=== PATIENT | male | born 1970 | race Hispanic/Latino ===

== ENCOUNTER 2017-11-27 18:11 | Inpatient (IN) | payer OTHER ==
[2017-11-27 18:11] VITALS: BMI 47.2
--- NOTE | 2017-11-27 20:58 | C.PDOC ---
History Of Present Illness 47 year old male presents to the ED for evaluation of scrotal swelling. Patient underwent admission on 05/2016 for CHF and uncontrolled Diabetes. 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 His cardiac echo showed mild systolic dysfunction and positive diastolic dysfunction. Patient reports good consistency with Lasix daily but states he overdrinks his diuretics, drinking 7-8 liters of [place]/day. Patient is consistent with his Metformin 1000mg BID. He states his finger stick is usually under 150 in the morning, and under 200 around dinnertime. Patient has sleep apnea, for which he wears a sleep mask at night. He denies fever, chills, or scrotal pain. Time Seen by Provider: 11/27/17 20:36 Chief Complaint (Nursing): Male Genitourinary History Per: Patient History/Exam Limitations: no limitations Onset/Duration Of Symptoms: Days Current Symptoms Are (Timing): Still Present Quality Of Discomfort: "Pain" Associated Symptoms: denies: Fever, Chills Additional History Per: Patient Past Medical History Reviewed: Historical Data, Nursing Documentation, Vital Signs Vital Signs: Last Vital Signs Temp 98.2 F 11/29/17 22:00 Pulse 83 11/29/17 22:00 Resp 19 11/29/17 22:00 BP 154/90 H 11/29/17 22:00 Pulse Ox 97 11/29/17 22:00 - Medical History PMH: Asthma, HTN, Pancreatitis (in 2003), Sleep Apnea (CPAP) Denies: Chronic Kidney Disease Surgical History: No Surg Hx - [facility] Procedures ASSISTANCE WITH RESPIRATORY VENTILATION, 24-96 HRS, CPAP (05/21/16) Family History: States: Unknown Family Hx - Social History Hx Alcohol Use: No Hx Substance Use: No - Immunization History Hx Tetanus Toxoid Vaccination: Yes Hx Influenza Vaccination: No Hx Pneumococcal Vaccination: No Review Of Systems Constitutional: Negative for: Fever, Chills Genitourinary: Positive for: Other (scrotal swelling ). Negative for: Scrotal Pain Physical Exam - Physical Exam Appears: Non-toxic, No Acute Distress, Other (morbidly obese, at 328 pounds ) Skin: Normal Color, Warm, Dry Head: Atraumatic, Normacephalic Eye(s): bilateral: Normal Inspection Oral Mucosa: Moist Neck: Supple Chest: Symmetrical, No Deformity, No Tenderness Cardiovascular: Rhythm Regular, Murmur (S3), JVD Respiratory: Rales (at bases ), No Rhonchi, No Wheezing Gastrointestinal/Abdominal: No Guarding, No Rebound, Other (globus abdomen ) Male Genital: Other (scrotal and penile edema, around 20cm in diameter. no scrotal tenderness ) Extremity: Normal ROM, Capillary Refill (less than 2 seconds ), Other ( dependent edema from hips to toes. 4/4 grotesque edema to bilateral lower extremities ) Pulses: Left Dorsalis Pedis: Normal, Right Dorsalis Pedis: Normal Neurological/Psych: Oriented x3, Normal Speech, Normal Cognition ED Course And Treatment - Laboratory Results Result Diagrams: 11/29/17 05:37 11/29/17 05:37 O2 Sat by Pulse Oximetry: 96 (on RA) Pulse Ox Interpretation: Normal - CT Scan/US CTA Chest Other Rad Studies (CT/US): Read By Radiologist, Radiology Report Reviewed CT/US Interpretation: Name: LAVELLE PEDROZA Age: 47Years M Date: 11/27/2017. Requesting Physician: Eulalio Rojas : 1970. [employer] Procedure Ordered As Accession Number of Images. CTA CHEST CT ANGIO CHEST PE PROTOCOL [id number]. Provided Clinical History: leg edema, ++ d-dimer , ? PE. EXAM: CT Angiography Chest With Intravenous Contrast. CLINICAL HISTORY : 47 years old, male; Pain; Chest pain; Additional info: Leg edema, ++ d-dimer, . ? pe. TECHNIQUE: Axial computed tomographic angiography images of the chest with intravenous. contrast using pulmonary embolism protocol. All CT scans at this facility use at least one of these. dose optimization techniques: automated exposure control; mA and/or kV adjustment per patient size. ( includes targeted exams where dose is matched to clinical indication); or iterative reconstruction. MIP reconstructed images were created and reviewed. Coronal and sagittal reformatted images. were created and reviewed. COMPARISON : No relevant prior studies available. FINDINGS: Pulmonary arteries: Unremarkable. No pulmonary embolism. Aorta: No acute findings. No thoracic aortic aneurysm. Lungs: Unremarkable. No mass. No consolidation. Pleural space : Unremarkable. No significant effusion. No pneumothorax. Heart: Trace pericardial effusion. No evidence of RV dysfunction. Bones/joints: Schmorl's nodes in the endplates of the lower thoracic spine. No acute fracture. No dislocation. Soft tissues: Unremarkable. Lymph nodes: Scattered retroperitoneal lymph nodes some of which are upper limits of normal in. size. Gallbladder and bile ducts: Large stone in the otherwise normal-appearing gallbladder. IMPRESSION: 1. No pulmonary embolism. 2. Trace pericardial effusion. 3. Large stone in the otherwise normal-appearing gallbladder. Thank you for allowing us to participate in the care of your patient. Dictated and Authenticated by: Alfonso Dunn MD. 11/27/2017 11:44 PM Eastern Time ([place] & [place]) Progress Note: Bloodwork, urinalysis, CXR, and EKG ordered and reviewed. Lasix IVP and Nitroglycerin TOP administered. Labs reviewed, + D dimer elevated. CTA Chest ordered. Patient given 100mg SC Lovenox. Disposition Doctor Will See Patient In The: Hospital Counseled Patient/Family Regarding: Studies Performed, Diagnosis - Disposition Disposition: HOSPITALIZED Disposition Time: 22:00 Condition: GOOD - Clinical Impression Clinical Impression: Obstructive sleep apnea, CHF exacerbation, Scrotal edema - Scribe Statement The provider has reviewed the documentation as recorded by the Scribe (Marilia Pappas) Provider Attestation: All medical record entries made by the Scribe were at my direction and personally dictated by me. I have reviewed the chart and agree that the record accurately reflects my personal performance of the history, physical exam, medical decision making, and the department course for this patient. I have also personally directed, reviewed, and agree with the discharge instructions and disposition.
[2017-11-27] MEDS ORDERED: Nitroglycerin 2% Ointment Foilpak UD TOP STA (21:01)
[2017-11-27 21:15] LABS: BASO # 0.1 K/uL (0.0-0.2); EOS # 0.2 K/uL (0.0-0.7); EOS % 2.4 % (0.0-4.0); HEMOGLOBIN 13.5 g/dL (12.0-18.0); LYMPH # 3.1 K/uL (1.0-4.3); LYMPH % 30.9 % (20.0-40.0); MEAN CELL VOLUME 84.7 fL (80.0-94.0); MEAN CORPUSCULAR HEMOGLOBIN 29.1 pg (27.0-31.0); MEAN CORPUSCULAR HGB CONC 34.4 g/dL (33.0-37.0); MEAN PLATELET VOLUME 8.1 fL (7.2-11.7); MONO # 0.9 K/uL (0.0-0.8); MONO % 8.9 % (0.0-10.0); NEUT # 5.6 K/uL (1.8-7.0); NEUT % 56.8 % (50.0-75.0); RBC 4.63 Mil/uL (4.40-5.90); RED CELL DISTRIBUTION WIDTH 13.9 % (11.5-14.5)
[2017-11-27 21:19] LABS: WHITE BLOOD COUNT 9.9 K/uL (4.8-10.8)
[2017-11-27] MEDS ORDERED: Nitroglycerin 2% Ointment Foilpak UD TOP ONE (21:25)
[2017-11-27 21:27] LABS: ALB/GLOB RATIO 1.1 (1.0-2.1); ALBUMIN 2.9 g/dL (3.5-5.0); ALT/SGPT 39 U/L (21-72); AST/SGOT 28 U/L (17-59); BLOOD UREA NITROGEN 20 mg/dL (9-20); CALCIUM 8.3 mg/dl (8.6-10.4); GFR AFRICAN-AMERICAN > 60; GFR NON-AFRICAN AMERICAN > 60
[2017-11-27 21:31] LABS: BARBITURATES, UR NEGATIVE (NEGATIVE); BENZODIAZEPINES, UR NEGATIVE (NEGATIVE); OPIATES, UR NEGATIVE (NEGATIVE); PHENCYCLIDINE, UR NEGATIVE (NEGATIVE); SQUAMOUS EPITHIAL < 1 /hpf (0-5); URINE BILIRUBIN NEGATIVE (NEGATIVE); URINE BLOOD NEGATIVE (NEGATIVE); URINE CLARITY Hazy (Clear); URINE COLOR Yellow (YELLOW); URINE GLUCOSE (UA) 3+ mg/dL (Normal); URINE LEUKOCYTE ESTERASE NEG Leu/uL (Negative); URINE PROTEIN 3+ mg/dL (NEGATIVE); URINE UROBILINOGEN NORMAL mg/dL (0.2-1.0)
[2017-11-27 21:36] LABS: PROTHROMBIN TIME 11.2 SECONDS (9.7-12.2)
[2017-11-27 21:38] LABS: B-TYPE NATRIURETIC PEPTIDE 282 pg/mL (0-450)
[2017-11-27] MEDS ORDERED: Enoxaparin 40 mg Syringe SC STA (22:13)
[2017-11-27] MEDS ORDERED: Iodixanol 320 MG/ML 100 ML BOTTLE IV ONE (22:21)
[2017-11-27] MEDS ORDERED: Enoxaparin 100 mg Syringe ONE (22:22)
[2017-11-27] MEDS ORDERED: Potassium Chloride 10 mEq ER Tab PO STA (23:20)
[2017-11-27] MEDS ORDERED: Potassium Chloride 20 mEq ER Tab PO ONE ×2 (23:31→23:32)
--- NOTE | 2017-11-28 00:42 | C.PDOC ---
Time Seen by Provider: 11/27/17 20:36 Chief Complaint (Nursing): Male Genitourinary Past Medical History Vital Signs: Last Vital Signs Temp 99.3 F 11/27/17 20:33 Pulse 84 11/27/17 23:44 Resp 16 11/27/17 23:44 BP 161/92 H 11/27/17 23:44 Pulse Ox 96 11/28/17 00:11 - Medical History PMH: Asthma, HTN, Pancreatitis (in 2003), Sleep Apnea (CPAP) Denies: Chronic Kidney Disease Surgical History: No Surg Hx - [facility] Procedures ASSISTANCE WITH RESPIRATORY VENTILATION, 24-96 HRS, CPAP (05/21/16) Family History: States: Unknown Family Hx - Social History Hx Alcohol Use: No Hx Substance Use: No - Immunization History Hx Tetanus Toxoid Vaccination: Yes Hx Influenza Vaccination: No Hx Pneumococcal Vaccination: No ED Course And Treatment - Laboratory Results Result Diagrams: 11/27/17 21:10 11/27/17 21:10 Lab Interpretation: Abnormal (trop/bnp neg, d-dimer 1107 H) ECG: Interpreted By La ECG Rhythm: Sinus Rhythm ECG Interpretation: Normal Rate From EC O2 Sat by Pulse Oximetry: 96 (on RA) Pulse Ox Interpretation: Normal - Radiology CXR: Interpreted by La CXR Interpretation: Yes: Other (+ mild CHF) Progress Note: 2100: lasix 60 IV. 0000: 2300 cc urine output Reevaluation Time: 00:38 Reassessment Condition: Improved - Physician Consult Information Outcome Of Conversation: 0030: d/w Dr. Pate- Medicine Trimmer Sorter- ok to admit. Medical Decision Making Medical Decision Making: CHF: prior dx of CHF 05/24 lost to f/u and overdrinking diuretic dramatically tense leg edema and scrotal edema are high risk for DVT elev d-dimer 54523, lovenox SQ given, CTA neg for PE Accurate body weight in ED diuresis, repleat K+, follow body weight and urine output systolic and diastolic dysfunction on Card Echo 05/24 Start BB when CHF exacerbation resolved Scrotal Edema consequence of extensive edema LOW suspicion of scrotal pathology no scrotal cellulitis Should improve with diuresis Consider scrotcal US PRN Disposition Doctor Will See Patient In The: Hospital Counseled Patient/Family Regarding: Studies Performed, Diagnosis - Disposition Disposition: HOSPITALIZED Disposition Time: 00:42 Condition: GOOD Forms: [facility] (Kinyarwanda) - Clinical Impression Clinical Impression: Obstructive sleep apnea, CHF exacerbation, Scrotal edema
[2017-11-28] MEDS ORDERED: Albuterol 0.083% Inhal Sol (2.5 mg/3 mL) UD IH PRN ×2 (01:02→11:45)
--- NOTE | 2017-11-28 08:47 | RAD ---
HISTORY: COMPARISON: No prior. TECHNIQUE: Chest PA and lateral FINDINGS: LINES AND TUBES: None. LUNG AND PLEURA: The lungs are well inflated and clear. No focal consolidation. There is mild pulmonary venous congestion No pleural effusion or pneumothorax. HEART AND MEDIASTINUM: There is severe cardiomegaly. The hilar and mediastinal contours are within normal limits. SKELETAL STRUCTURES: The bony structures are within normal limits for the patient's age. VISUALIZED UPPER ABDOMEN: Normal. OTHER FINDINGS: None. IMPRESSION: No active pulmonary disease. Severe cardiomegaly and mild pulmonary venous congestion.
[2017-11-28] MEDS ORDERED: Home Med 1 UNIT (Metformin [Glucophage] 500 MG) PO SCH (10:00)
[2017-11-28] MEDS: Enoxaparin 40 mg Syringe SC SCH (10:40)
--- NOTE | 2017-11-28 11:21 | CT ---
Date of service: 11/27/2017 PROCEDURE: CT Chest with contrast (Pulmonary Angiogram) HISTORY: leg edema, d-dimer, ? PE COMPARISON: Plain radiographs from 11/27/2017. TECHNIQUE: Axial computed tomography images were obtained of the chest in the pulmonary arterial phase of enhancement. Coronal and sagittal reformatted images were created and reviewed. Intravenous contrast dose: 100 mL Visipaque 320 Radiation dose: Total exam DLP = 679.35 mGy-cm. This CT exam was performed using one or more of the following dose reduction techniques: Automated exposure control, adjustment of the mA and/or kV according to patient size, and/or use of iterative reconstruction technique. FINDINGS: PULMONARY ARTERIES: There are no filling defects in the pulmonary arteries to suggest acute embolism. AORTA: The aorta is not dilated. No aortic dissection. LUNGS: There is scattered centrilobular emphysema in the lungs. No nodule, mass or pulmonary consolidation. PLEURAL SPACES: No effusion or pneumothorax. HEART: No cardiomegaly. Trace pericardial effusion. LYMPH NODES: No pathologic lymphadenopathy. BONES, CHEST WALL: Mild multilevel degenerative disc disease. No fracture or destructive lesion OTHER FINDINGS: There is a solitary large calcified gallstone. IMPRESSION: No CT evidence for acute pulmonary embolism. Trace pericardial effusion. Cholelithiasis. A preliminary report was provided by [facility].
--- NOTE | 2017-11-28 16:09 | CP.PCM.PN ---
Subjective - Date & Time of Evaluation Date of Evaluation: 11/28/17 Time of Evaluation: 10:08 - Subjective Subjective: PGY2 Medicine Note for Dr. Pate Patient seen and examined at bedside this morning. Patient was admitted overnight for worsening edema, swollen scrotum and SOB. Patient has been urinating frequently and states that his breathing has been drastically improved. He feels his scrotum has decreased from the size of a cantaloupe to a grapefruit overnight. It is still painful to sit on his scrotum, but the pain has improved. Denies fevers, chills, nausea, vomiting, diarrhea, constipation, chest pain, palpitations, abdominal pain, numbness or tingling. Objective - Vital Signs/Intake and Output Vital Signs (last 24 hours): Temp Pulse Resp BP Pulse Ox 98.6 F 78 16 171/111 H 98 11/28/17 14:00 11/28/17 14:00 11/28/17 14:00 11/28/17 14:00 11/28/17 14:00 Intake and Output: 11/28/17 11/28/17 06:59 18:59 Intake Total 240 250 Output Total 3040 1500 Balance -2800 -1250 - Medications Medications: Current Medications Albuterol Sulfate (Albuterol 0.083% Inhal Tamika (2.5 Mg/3 Ml) Ud) 2.5 mg IH RQ6 PRN PRN Reason: Shortness of Breath Amlodipine Besylate (Norvasc) 10 mg PO DAILY [facility] Last Admin: 11/28/17 10:40 Dose: 10 mg Enoxaparin Sodium (Lovenox) 40 mg SC DAILY [facility] Last Admin: 11/28/17 10:40 Dose: 40 mg Furosemide (Lasix) 40 mg IVP DAILY [facility] Last Admin: 11/28/17 10:42 Dose: 40 mg Glipizide (Glucotrol) 5 mg PO DAILY [facility] Hydralazine HCl (Apresoline) 10 mg IVP Q6H PRN PRN Reason: SBP >160 Losartan Potassium (Cozaar) 50 mg PO DAILY [facility] Last Admin: 11/28/17 10:40 Dose: 50 mg Metformin HCl (Glucophage) 500 mg PO BID [facility] Pantoprazole Sodium (Protonix Ec Tab) 40 mg PO DAILY [facility] - Labs Labs: 11/27/17 21:10 11/27/17 21:10 PT 11.2 SECONDS (9.7-12.2) 11/27/17 21:10 INR 1.0 11/27/17 21:10 APTT 29 SECONDS (21-34) 11/27/17 21:10 - Constitutional Appears: Non-toxic, No Acute Distress - Head Exam Head Exam: NORMOCEPHALIC - Eye Exam Eye Exam: EOMI, Normal appearance - ENT Exam ENT Exam: Mucous Membranes Moist - Neck Exam Neck Exam: absent: Lymphadenopathy - Respiratory Exam Respiratory Exam: Clear to Ausculation Bilateral, NORMAL BREATHING PATTERN. absent: Accessory Muscle Use, Rales, Rhonchi, Wheezes, Respiratory Distress - Cardiovascular Exam Cardiovascular Exam: REGULAR RHYTHM, +S1, +S2 - GI/Abdominal Exam GI & Abdominal Exam: Soft. absent: Distended, Firm, Guarding, Rigid - Exam Exam: Scrotal Swelling (size of a large grapefruit, penile swelling). absent : Testicular Tenderness - Extremities Exam Extremities Exam: Pedal Edema (4+ b/l up to knees). absent: Calf Tenderness - Neurological Exam Neurological Exam: Alert, Awake, CN II-XII Intact, Oriented x3 - Psychiatric Exam Psychiatric exam: Normal Affect, Normal Mood - Skin Skin Exam: Dry, Warm Assessment and Plan - Assessment and Plan (Free Text) Plan: Shortness of breath CHF vs KENYA vs Obesity Hypoventilation Syndrome CXR (11/27): No active pulmonary disease. Severe cardiomegaly and mild pulmonary venous congestion. Chest CTA (11/27): No CT evidence for acute pulmonary embolism. Trace pericardial effusion. Cholelithiasis ECHO: pending D-Dimer 1007 BNP 282 Trop negative x 1 (0.0290) UA - protein 3+, glucose 3+ UDS negative Lipid Panel pending HCO3 on BMP - 29 * ABG pending Medications * Albuterol 0.083% 2.5mg IH q6h prn * Lasix 40mg IVP daily Hypertension uncontrolled, continue to monitor Medications * Amlodipine 10mg PO daily * Lasix 40mg IVP daily * Losartan 50mg PO daily * Hydralazine 10mg IVP q6h prn Diabetes patient admits diet non-compliance Medications * Glipizide 5mg PO daily Morbid Obesity BMI 51.9 Discussed importance of weight loss with patient and his son. Patient states he understands and agrees. Prophylactic Care Lovenox 40mg SC daily SCD contraindicated due to lower extremity edema All medical management per Dr. Pate
--- NOTE | 2017-11-28 21:36 | CARD ---
APPROVED REPORT Date of service: 11/27/2017 EKG Measurement Heart [id number] <Conclusion> Normal sinus rhythm Septal infarct, age undetermined can not be excluded Abnormal ECG
[2017-11-28 22:08] LABS: ABG ALLEN TEST POS; ARTERIAL BLOOD GAS HCO3 27.4 mmol/L (21-28); ARTERIAL BLOOD GAS O2 SAT 97.3 % (95-98); ARTERIAL BLOOD GAS PCO2 37 mm/Hg (35-45); ARTERIAL BLOOD GAS PH 7.47 (7.35-7.45); ARTERIAL BLOOD GAS PO2 77 mm/Hg (80-100)
[2017-11-29 05:43] LABS: BASO # 0.1 K/uL (0.0-0.2); BASO % 0.8 % (0.0-2.0); EOS # 0.3 K/uL (0.0-0.7); EOS % 2.6 % (0.0-4.0); HEMOGLOBIN 12.9 g/dL (12.0-18.0); LYMPH # 3.1 K/uL (1.0-4.3); LYMPH % 30.6 % (20.0-40.0); MEAN CELL VOLUME 84.7 fL (80.0-94.0); MEAN CORPUSCULAR HEMOGLOBIN 29.3 pg (27.0-31.0); MEAN CORPUSCULAR HGB CONC 34.6 g/dL (33.0-37.0); MEAN PLATELET VOLUME 8.1 fL (7.2-11.7); MONO # 0.9 K/uL (0.0-0.8); MONO % 8.8 % (0.0-10.0); NEUT # 5.7 K/uL (1.8-7.0); NEUT % 57.2 % (50.0-75.0); RBC 4.39 Mil/uL (4.40-5.90); RED CELL DISTRIBUTION WIDTH 13.2 % (11.5-14.5)
[2017-11-29 05:59] LABS: ALBUMIN 2.6 g/dL (3.5-5.0); ALT/SGPT 36 U/L (21-72); AST/SGOT 25 U/L (17-59); BLOOD UREA NITROGEN 23 mg/dL (9-20); CALCIUM 7.9 mg/dl (8.6-10.4); GFR AFRICAN-AMERICAN > 60; GFR NON-AFRICAN AMERICAN > 60; HDL CHOLESTEROL 32 mg/dL (30-70)
[2017-11-29 06:09] LABS: LDL CHOLESTEROL 135 mg/dL (0-129)
[2017-11-29] MEDS: Enoxaparin 40 mg Syringe SC SCH ×2 (10:22→18:56)
[2017-11-29] MEDS: Pantoprazole 40 mg EC Tab PO SCH (10:23)
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
--- NOTE | 2017-11-29 13:36 | CP.PCM.PN ---
Subjective - Date & Time of Evaluation Date of Evaluation: 11/29/17 Time of Evaluation: 07:20 - Subjective Subjective: PGY2 Medicine Note for Dr. Pate Patient seen and examined this morning at bedside. Patient passed out last night while having an ABG drawn. He stated he bared down because he was worried about the pain from the needle and passed out waiting for the needle to come out of his arm. Patient reports this has happened in the past. He said he felt fine and was quickly back to normal. He has no complaints today except that his scrotum is still swollen. His breathing is greatly improved. He is feeling well and hopeful he will not be in the hospital much longer. Denies fevers, chills, nausea, vomiting, diarrhea, constipation, chest pain, palpitations, abdominal pain, numbness or tingling. Objective - Vital Signs/Intake and Output Vital Signs (last 24 hours): Temp Pulse Resp BP Pulse Ox 97.9 F 76 19 169/101 H 98 11/29/17 00:00 11/29/17 06:00 11/29/17 06:00 11/29/17 10:22 11/28/17 14:00 Intake and Output: 11/29/17 11/29/17 06:59 18:59 Intake Total 340 Output Total 775 Balance -435 - Medications Medications: Current Medications Albuterol Sulfate (Albuterol 0.083% Inhal Tamika (2.5 Mg/3 Ml) Ud) 2.5 mg IH RQ6 PRN PRN Reason: Shortness of Breath Amlodipine Besylate (Norvasc) 10 mg PO DAILY [facility] Last Admin: 11/29/17 10:23 Dose: 10 mg Aspirin (Ecotrin) 81 mg PO DAILY [facility] Last Admin: 11/29/17 10:23 Dose: 81 mg Enoxaparin Sodium (Lovenox) 40 mg SC DAILY [facility] Furosemide (Lasix) 40 mg IVP Q12 [facility] Glipizide (Glucotrol) 5 mg PO DAILY [facility] Last Admin: 11/28/17 13:00 Dose: 5 mg Hydralazine HCl (Apresoline) 10 mg IVP Q6H PRN PRN Reason: SBP >160 Last Admin: 11/29/17 10:23 Dose: 10 mg Losartan Potassium (Cozaar) 50 mg PO DAILY [facility] Last Admin: 11/29/17 10:23 Dose: 50 mg Metformin HCl (Glucophage) 500 mg PO BID [facility] Pantoprazole Sodium (Protonix Ec Tab) 40 mg PO DAILY [facility] Last Admin: 11/29/17 10:23 Dose: 40 mg Rosuvastatin Calcium (Crestor) 5 mg PO HS [facility] - Labs Labs: 11/29/17 05:37 11/29/17 05:37 PT 11.2 SECONDS (9.7-12.2) 11/27/17 21:10 INR 1.0 11/27/17 21:10 APTT 29 SECONDS (21-34) 11/27/17 21:10 - Constitutional Appears: Non-toxic, No Acute Distress, Other (morbid obese) - Head Exam Head Exam: NORMOCEPHALIC - Eye Exam Eye Exam: Normal appearance. absent: Scleral icterus - ENT Exam ENT Exam: Mucous Membranes Moist - Respiratory Exam Respiratory Exam: Clear to Ausculation Bilateral, NORMAL BREATHING PATTERN. absent: Accessory Muscle Use, Rales, Rhonchi, Wheezes, Respiratory Distress - Cardiovascular Exam Cardiovascular Exam: REGULAR RHYTHM, +S1, +S2 - GI/Abdominal Exam GI & Abdominal Exam: Soft. absent: Distended, Firm, Guarding, Rigid, Tenderness - Extremities Exam Extremities Exam: Pedal Edema (4+ up to knees b/l). absent: Calf Tenderness - Neurological Exam Neurological Exam: Alert, Awake, CN II-XII Intact, Oriented x3 - Psychiatric Exam Psychiatric exam: Normal Affect, Normal Mood - Skin Skin Exam: Dry, Warm Assessment and Plan - Assessment and Plan (Free Text) Plan: Shortness of breath CHF vs KENYA vs Obesity Hypoventilation Syndrome CXR (11/27): No active pulmonary disease. Severe cardiomegaly and mild pulmonary venous congestion. Chest CTA (11/27): No CT evidence for acute pulmonary embolism. Trace pericardial effusion. Cholelithiasis ECHO: pending D-Dimer 1007 BNP 282 Trop negative x 1 (0.0290) UA - protein 3+, glucose 3+ UDS negative Lipid Panel pending HCO3 on BMP - 29 * ABG on Room Air: pCO2 37, pO2 77, HCO3 27.4, pH 7.47 Medications * Albuterol 0.083% 2.5mg IH q6h prn * Lasix 40mg IVP daily --> increased to BID * Crestor 5mg PO HS * Aspirin 81mg PO daily Hypertension uncontrolled, continue to monitor Medications * Amlodipine 10mg PO daily * Lasix 40mg IVP BID * Losartan 50mg PO daily * Hydralazine 10mg IVP q6h prn Diabetes patient admits diet non-compliance Hgb A1c 10.0 Medications * Glipizide 5mg PO daily * Metformin 500mg PO BID on hold due to contrast CT * Started on ISS * Hypoglycemic protocol Morbid Obesity BMI 51.9 Dr. Pate and Resident Peewee discussed importance of weight loss again. Discussed option of bariatric surgery but patient is very worried about the thought of possible surgery. Patient states he understands he needs to lose weight and agrees to go a meeting/consultation about bariatric surgery. Prophylactic Care Lovenox 40mg SC daily SCD contraindicated due to lower extremity edema Protonix 40mg PO daily All medical management per Dr. Pate
[2017-11-29] MEDS ORDERED: Glucagon Recombinant 1 mg Inj IM PRN (14:15)
[2017-11-29] MEDS ORDERED: Dextrose 50% SYRINGE Inj (50 ml) IV PRN (14:15)
[2017-11-29] MEDS ORDERED: Enoxaparin 40 mg Syringe SC SCH ×2 (18:00)
[2017-11-29] MEDS: (Novolin R) Insulin Human Regular 100 units/ml vial SC SCH ×2 (18:56→21:26)
--- NOTE | 2017-11-29 20:47 | CARD ---
APPROVED REPORT Date of service: 11/29/2017 EXAM: Two-dimensional and M-mode echocardiogram with Doppler and color Doppler. Other Information Quality : TDSRhythm : INDICATION Congestive Heart Failure RISK FACTORS Hypertension Diabetes 2D DIMENSIONS IVSd1.4 (0.7-1.1cm)LVDd5.5 (3.9-5.9cm) PWd1.3 (0.7-1.1cm)LVDs3.7 (2.5-4.0cm) FS (%) 31.5 %LVEF (%)58.8 (>50%) M-Mode DIMENSIONS Left Atrium (MM)4.41 (2.5-4.0cm)IVSd1.28 (0.7-1.1cm) Aortic Root3.64 (2.2-3.7cm)LVDd6.43 (4.0-5.6cm) Aortic Cusp Exc.2.54 (1.5-2.0cm)PWd1.05 (0.7-1.1cm) FS (%) 35 %LVDs4.15 (2.0-3.8cm) LVEF (%)64 (>50%) Mitral Valve MV E [id number]/sMV A [place]55.0cm/sE/A ratio1.3 TDI E/Lateral E'0.0E/Medial E'0.0 Tricuspid Valve TR Peak [id number] Peak [id number] LEFT VENTRICLE The left ventricle is normal size. There is mild concentric left ventricular hypertrophy. Left ventricle systolic function is borderline. The Ejection Fraction is 50-55%. There is normal LV segmental wall motion. The left ventricular diastolic function is normal. There is no ventricular septal defect visualized. RIGHT VENTRICLE The right ventricle is normal size. The right ventricular systolic function is normal. ATRIA The left atrium is mildly dilated. The right atrium size is normal. AORTIC VALVE The aortic valve is mildly sclerotic. The aortic valve is probably tri-cuspid. No aortic regurgitation is present. There is no aortic valvular stenosis. MITRAL VALVE Mitral annular calcification is mild. There is no evidence of mitral valve prolapse. Mitral regurgitation is mild. TRICUSPID VALVE The tricuspid valve is normal in structure. There is trace tricuspid regurgitation. There is no pulmonary hypertension. PULMONIC VALVE The pulmonic valve is not well visualized. There is no pulmonic valvular regurgitation. GREAT VESSELS The aortic root is mildly enlarged.3.8 cm The ascending aorta is normal in size. The IVC is normal in size and collapses >50% with inspiration. PERICARDIAL EFFUSION There is no pericardial effusion. <Conclusion> There is mild concentric left ventricular hypertrophy. Left ventricle systolic function is borderline. The Ejection Fraction is 50-55%. The left ventricular diastolic function is normal. Mitral regurgitation is mild. suboptimal, poor acoustic window.
[2017-11-30 06:45] LABS: BASO # 0.1 K/uL (0.0-0.2); BASO % 0.9 % (0.0-2.0); EOS # 0.4 K/uL (0.0-0.7); EOS % 3.5 % (0.0-4.0); HEMOGLOBIN 13.1 g/dL (12.0-18.0); LYMPH # 3.3 K/uL (1.0-4.3); LYMPH % 31.3 % (20.0-40.0); MEAN CELL VOLUME 84.9 fL (80.0-94.0); MEAN CORPUSCULAR HEMOGLOBIN 29.4 pg (27.0-31.0); MEAN CORPUSCULAR HGB CONC 34.6 g/dL (33.0-37.0); MONO % 9.5 % (0.0-10.0); NEUT # 5.7 K/uL (1.8-7.0); NEUT % 54.8 % (50.0-75.0); NRBC % 0.1 % (0.0-2.0); RBC 4.45 Mil/uL (4.40-5.90); RED CELL DISTRIBUTION WIDTH 13.4 % (11.5-14.5); WHITE BLOOD COUNT 10.4 K/uL (4.8-10.8)
--- NOTE | 2017-11-30 06:47 | CP.PCM.PN ---
Subjective - Date & Time of Evaluation Date of Evaluation: 11/30/17 Time of Evaluation: 06:47 - Subjective Subjective: PGY2 Medicine Note for Dr. Pate Patient seen and examined this morning at bedside. No acute events overnight. Patient is resting comfortably in bed. His breathing is greatly improved and feels like he is breathing normally. He is able to lay close to flat without becoming SOB. The swelling in his scrotum has started to decrease. He is urinating very frequently without difficulty. He spoke with a glue spreading machine operator yesterday and is looking forward to losing weight upon discharge. He has no complaints today. Denies fevers, chills, nausea, vomiting, diarrhea, constipation, chest pain, palpitations, abdominal pain, numbness or tingling. Objective - Vital Signs/Intake and Output Vital Signs (last 24 hours): Temp Pulse Resp BP Pulse Ox 98.2 F 79 19 154/90 H 96 11/29/17 22:00 11/30/17 06:00 11/29/17 22:00 11/29/17 22:00 11/30/17 05:26 Intake and Output: 11/29/17 11/30/17 18:59 06:59 Intake Total 500 550 Output Total 1500 950 Balance -1000 -400 - Medications Medications: Current Medications Albuterol Sulfate (Albuterol 0.083% Inhal Tamika (2.5 Mg/3 Ml) Ud) 2.5 mg IH RQ6 PRN PRN Reason: Shortness of Breath Aspirin (Ecotrin) 81 mg PO DAILY [facility] Last Admin: 11/29/17 10:23 Dose: 81 mg Dextrose (Dextrose 50% Inj) 0 ml IV STAT PRN; Protocol PRN Reason: Hypoglycemia Protocol Dextrose (Glutose 15) 0 gm PO ONCE PRN; Protocol PRN Reason: Hypoglycemia Protocol Enoxaparin Sodium (Lovenox) 40 mg SC DAILY [facility] Last Admin: 11/29/17 18:56 Dose: Not Given Furosemide (Lasix) 40 mg IVP Q12 [facility] Last Admin: 11/29/17 21:49 Dose: 40 mg Glipizide (Glucotrol) 5 mg PO DAILY [facility] Last Admin: 11/29/17 10:12 Dose: 5 mg Glucagon (Glucagen Diagnostic Kit) 0 mg IM STAT PRN; Protocol PRN Reason: Hypoglycemia Protocol Hydralazine HCl (Apresoline) 10 mg IVP Q6H PRN PRN Reason: SBP >160 Last Admin: 11/29/17 10:23 Dose: 10 mg Dextrose (Dextrose 5% In Water 1000 Ml) 1,000 mls @ 0 mls/hr IV .Q0M PRN; Protocol; Per Protocol PRN Reason: Hypoglycemia Protocol Insulin Human Regular (Novolin R) 0 unit SC ACHS [facility] PRN Reason: Protocol Last Admin: 11/29/17 21:26 Dose: Not Given Losartan Potassium (Cozaar) 50 mg PO DAILY [facility] Last Admin: 11/29/17 10:23 Dose: 50 mg Metformin HCl (Glucophage) 500 mg PO BID [facility] Pantoprazole Sodium (Protonix Ec Tab) 40 mg PO DAILY [facility] Last Admin: 11/29/17 10:23 Dose: 40 mg Rosuvastatin Calcium (Crestor) 5 mg PO HS [facility] Last Admin: 11/29/17 21:50 Dose: 5 mg - Labs Labs: 11/29/17 05:37 11/29/17 05:37 PT 11.2 SECONDS (9.7-12.2) 11/27/17 21:10 INR 1.0 11/27/17 21:10 APTT 29 SECONDS (21-34) 11/27/17 21:10 - Constitutional Appears: Non-toxic, No Acute Distress, Other (morbid obese) - Head Exam Head Exam: ATRAUMATIC, NORMOCEPHALIC - Eye Exam Eye Exam: EOMI, Normal appearance. absent: Scleral icterus - ENT Exam ENT Exam: Mucous Membranes Moist - Neck Exam Neck Exam: absent: Lymphadenopathy - Respiratory Exam Respiratory Exam: Clear to Ausculation Bilateral, NORMAL BREATHING PATTERN. absent: Accessory Muscle Use, Rales, Rhonchi, Wheezes, Respiratory Distress - Cardiovascular Exam Cardiovascular Exam: REGULAR RHYTHM, +S1, +S2 Additional comments: elevated BP during exam 170s/100s - GI/Abdominal Exam GI & Abdominal Exam: Soft. absent: Distended, Firm, Guarding, Rigid, Tenderness Additional comments: morbidly obese - Exam Exam: Scrotal Swelling (mildly improved). absent: Testicular Tenderness, Uretheral Discharge Additional comments: penile swelling improving - Extremities Exam Extremities Exam: Pedal Edema (4+ up to knees b/l). absent: Calf Tenderness, Tenderness Additional comments: excoriations on LE b/l - Neurological Exam Neurological Exam: Alert, Awake, CN II-XII Intact, Oriented x3 - Psychiatric Exam Psychiatric exam: Normal Affect, Normal Mood - Skin Skin Exam: Dry, Warm Assessment and Plan - Assessment and Plan (Free Text) Plan: Shortness of breath (improving) CHF vs KENYA vs Obesity Hypoventilation Syndrome Cardiology consulted, Dr. Ghosh - help appreciated CXR (11/27): No active pulmonary disease. Severe cardiomegaly and mild pulmonary venous congestion. Chest CTA (11/27): No CT evidence for acute pulmonary embolism. Trace pericardial effusion. Cholelithiasis ECHO (11/29): EF ~ 50-55%, mild LVH, mild MR, normal diastolic function D-Dimer 1007 BNP 282 Trop negative x 1 (0.0290) UA - protein 3+, glucose 3+ UDS negative Lipid Panel (11/29/17): HDL 32, LDL 135, Trigly 165 HCO3 on BMP - 27 * ABG on Room Air (11/28): pCO2 37, pO2 77, HCO3 27.4, pH 7.47 ASCVD risk - 18.3% risk of cardiovascular event in next 10 years. Medications * Albuterol 0.083% 2.5mg IH q6h prn * Lasix 40mg IVP daily --> increased to BID * Crestor 5mg PO HS --> increase 20mg PO HS (patient will need to be discharged on high dose statin due to ASCVD risk of 18.3%) * started [place]-3 (Lovaza) 1gm PO BID * Aspirin 81mg PO daily Hypertension uncontrolled, continue to monitor Medications * Amlodipine 10mg PO daily * Lasix 40mg IVP BID * Losartan 50mg PO daily --> increased to 100mg PO daily * Hydralazine 25mg PO q6h prn for SBP>160 Diabetes, uncontrolled Endocrinology consulted, Dr. Nora Funes - help appreciated patient admits diet non-compliance Hgb A1c 10.0 Medications * Glipizide 5mg PO daily - discontinued * Metformin 500mg PO BID on hold due to contrast CT - due to restart at tonight' s dose * Started Lantus 10 units SC HS * ISS - high dose * Hypoglycemic protocol Nephrotic Syndrome likely 2/2 to uncontrolled diabetes UA (11/27/17): Protein 3+, Glucose 3+, otherwise unremarkable BUN 23/Cr 0.9 Total protein 5.1 Albumin 2.6 Discussed with patient that his swelling is likely occurring due loss of protein in his urine 2/2 kidney damage from his uncontrolled diabetes. Morbid Obesity BMI 51.9 [employer] referral * per patient, had a long discussion between glue spreading machine operator, and himself. He was given a referral for an outpatient glue spreading machine operator that he plans to follow up with once discharge. Patient understands that he is in poor health and it is largely related to his weight. He needs to take control of his diet and get his health back under control. Patient agrees and verbalizes his understanding stating he will young if he does not get his weight under control. Dr. Pate discussed with patient about gastric bypass/sleeve surgery. Patient is still hesitant but states again that he is willing to look into the surgery upon discharge. Transaminitis upon admission, AST 124/ ALT 87 * today, AST 131/ ALT 83 * continue to monitor Prophylactic Care Lovenox 40mg SC daily SCD contraindicated due to lower extremity edema Protonix 40mg PO daily All medical management per Dr. Pate
[2017-11-30 07:03] LABS: ALBUMIN 2.6 g/dL (3.5-5.0); ALT/SGPT 26 U/L (21-72); AST/SGOT 22 U/L (17-59); BLOOD UREA NITROGEN 23 mg/dL (9-20); CALCIUM 7.4 mg/dl (8.6-10.4); GFR AFRICAN-AMERICAN > 60; GFR NON-AFRICAN AMERICAN > 60
[2017-11-30] MEDS: (Novolin R) Insulin Human Regular 100 units/ml vial SC SCH ×4 (08:00→22:19)
--- NOTE | 2017-11-30 09:34 | HP ---
HISTORY OF PRESENT ILLNESS: The patient is a 47-year-old male with history of diabetes, hypertension, multiple , sleep apnea, admitted to the hospital with chief complaint of swelling in lower extremities, weakness, and fatigue. The patient came to the ER and evaluated. Advised admission. The patient was controlled on Glipizide. The patient use CPAP machine as well. PHYSICAL EXAMINATION: GENERAL: The patient is awake, alert, and oriented. VITAL SIGNS: Temperature 98, pulse 90, blood pressure 130/80. HEENT: Within normal limits. NECK: Supple. CHEST: Symmetrical. Decreased air entry. HEART: Regular. ABDOMEN: Soft. EXTREMITIES: 3+ edema. ASSESSMENT AND PLAN: The patient ____ heart failure without pulmonary hypertension, cor pulmonale, sleep apnea, rule out nephrotic syndrome. The patient oxygen, diuresis, salt-restriction. Keith Pate MD
[2017-11-30] MEDS: Enoxaparin 40 mg Syringe SC SCH (10:35)
[2017-11-30] MEDS: Omega-3-Acid Ethyl Esters 1 GM Cap PO SCH ×2 (10:35→18:00)
[2017-11-30] MEDS: Pantoprazole 40 mg EC Tab PO SCH (10:36)
--- NOTE | 2017-11-30 14:38 | CP.PCM.PN ---
<Jeannine Ferraro - Last Filed: 11/30/17 14:31> Subjective - Date & Time of Evaluation Date of Evaluation: 11/30/17 Time of Evaluation: 13:00 - Subjective Subjective: PGY2- Progress Note for Dr. Ghosh Patient seen and examined. Patient in good spirits and up out of bed in-chair at time of exam. Patient states he believes scrotal/lower extremity swelling is improved from yesterday. Patient states compliance with PT today and denies shortness of breath during therapy. Patient expresses desire and motivation to lose weight. Patient denies chest pain, palpitations, shortness of breath, nausea and vomiting. Patient reports polyuria likely due to Lasix. Patient states his range of motion of the bilateral ankles is improved due to decreased swelling. Objective - Vital Signs/Intake and Output Vital Signs (last 24 hours): Temp Pulse Resp BP Pulse Ox 98.1 F 74 17 164/98 H 98 11/30/17 08:00 11/30/17 08:00 11/30/17 08:00 11/30/17 10:35 11/30/17 08:00 Intake and Output: 11/30/17 11/30/17 06:59 18:59 Intake Total 550 225 Output Total 950 1950 Balance -400 1725 - Medications Medications: Current Medications Albuterol Sulfate (Albuterol 0.083% Inhal Tamika (2.5 Mg/3 Ml) Ud) 2.5 mg IH RQ6 PRN PRN Reason: Shortness of Breath Aspirin (Ecotrin) 81 mg PO DAILY [facility] Last Admin: 11/30/17 10:34 Dose: 81 mg Dextrose (Dextrose 50% Inj) 0 ml IV STAT PRN; Protocol PRN Reason: Hypoglycemia Protocol Dextrose (Glutose 15) 0 gm PO ONCE PRN; Protocol PRN Reason: Hypoglycemia Protocol Enoxaparin Sodium (Lovenox) 40 mg SC DAILY [facility] Last Admin: 11/30/17 10:35 Dose: 40 mg Furosemide (Lasix) 40 mg IVP Q12 [facility] Last Admin: 11/30/17 10:35 Dose: 40 mg Glimepiride (Amaryl) 4 mg PO ACBD [facility] Glucagon (Glucagen Diagnostic Kit) 0 mg IM STAT PRN; Protocol PRN Reason: Hypoglycemia Protocol Hydralazine HCl (Apresoline) 75 mg PO TID [facility] Dextrose (Dextrose 5% In Water 1000 Ml) 1,000 mls @ 0 mls/hr IV .Q0M PRN; Protocol; Per Protocol PRN Reason: Hypoglycemia Protocol Insulin Glargine (Lantus) 10 unit SC HS [facility] Insulin Human Regular (Novolin R) 0 unit SC ACHS [facility] PRN Reason: Protocol Losartan Potassium (Cozaar) 100 mg PO DAILY [facility] Metformin HCl (Glucophage) 850 mg PO BID [facility] Lvqvi-3-Laio Ethyl Esters (Lovaza) 1 gm PO BID [facility] Last Admin: 11/30/17 10:35 Dose: 1 gm Pantoprazole Sodium (Protonix Ec Tab) 40 mg PO DAILY [facility] Last Admin: 11/30/17 10:36 Dose: 40 mg Rosuvastatin Calcium (Crestor) 20 mg PO HS [facility] - Labs Labs: 11/30/17 06:36 11/30/17 06:36 PT 11.2 SECONDS (9.7-12.2) 11/27/17 21:10 INR 1.0 11/27/17 21:10 APTT 29 SECONDS (21-34) 11/27/17 21:10 - Additional Findings Additional findings: - Constitutional Appears: Non-toxic, No Acute Distress Additional comments: morbid obesity - Head Exam Head Exam: ATRAUMATIC, NORMAL INSPECTION, NORMOCEPHALIC - Eye Exam Eye Exam: EOMI, Normal appearance - ENT Exam ENT Exam: Mucous Membranes Moist - Respiratory Exam Respiratory Exam: Clear to Auscultation Bilateral, NORMAL BREATHING PATTERN - Cardiovascular Exam Cardiovascular Exam: REGULAR RHYTHM, RRR, +S1, +S2 - GI/Abdominal Exam GI & Abdominal Exam: Normal Bowel Sounds, Soft. absent: Tenderness - Exam Exam: Scrotal Swelling - Extremities Exam Extremities exam: Positive for: pedal edema Additional comments: 4+ pitting edema bilaterally up to knees - Back Exam Back exam: NORMAL INSPECTION - Neurological Exam Neurological exam: Alert, Oriented x3 - Psychiatric Exam Psychiatric exam: Normal Affect, Normal Mood - Skin Skin Exam: Normal Color, Warm Additional comments: b/l excoriations on LE Assessment and Plan - Assessment and Plan (Free Text) Assessment: Lower Extremity Edema 2/2 Acute on Chronic CHF vs Obesity hypoventilation syndrome Shortness of breath CXR (11/27): No active pulmonary disease. Severe cardiomegaly and mild pulmonary venous congestion. D-Dimer 1007 LE dopplers ordered Chest CTA (11/27): No CT evidence for acute pulmonary embolism. Trace pericardial effusion. Cholelithiasis Troponin Neg x 1 BNP: 282 11/29/17 ECHO: shows mild concentric left ventricular hypertrophy with EF - 50-55 %. Meds: * Albuterol 0.083% 2.5mg IH q6h prn * Lasix 40mg IVP daily * D/C amlodipine Uncontrolled Hypertension Patient's blood pressure uncontrolled on Cozaar 100 mg PO QD, Aspresoline 25 mg PO q6h PRN and Lasix 40 mg IVP q12h. Hydralazine increased to 75mg po TID Diabetes Mellitus Patient's sugars still uncontrolled and most recent HbA1c = 10. Follow-up Endocrinology recommendations. Importance of tight glucose control emphasized for prevention of both microvascular and macrovascular complications. ISS Metformin 500mg po BID Glipizide 5mg po daily Discussed with Dr. Ghosh <Dony Ghosh - Last Filed: 11/30/17 22:45> Objective - Vital Signs/Intake and Output Vital Signs (last 24 hours): Temp Pulse Resp BP Pulse Ox 98.2 F 75 15 179/105 H 98 11/30/17 18:00 11/30/17 18:00 11/30/17 18:00 11/30/17 21:37 11/30/17 18:00 Intake and Output: 11/30/17 12/01/17 18:59 06:59 Intake Total 225 Output Total 2350 Balance -2125 - Medications Medications: Current Medications Albuterol Sulfate (Albuterol 0.083% Inhal Tamika (2.5 Mg/3 Ml) Ud) 2.5 mg IH RQ6 PRN PRN Reason: Shortness of Breath Aspirin (Ecotrin) 81 mg PO DAILY [facility] Last Admin: 11/30/17 10:34 Dose: 81 mg Dextrose (Dextrose 50% Inj) 0 ml IV STAT PRN; Protocol PRN Reason: Hypoglycemia Protocol Dextrose (Glutose 15) 0 gm PO ONCE PRN; Protocol PRN Reason: Hypoglycemia Protocol Enoxaparin Sodium (Lovenox) 40 mg SC DAILY [facility] Last Admin: 11/30/17 10:35 Dose: 40 mg Furosemide (Lasix) 40 mg IVP Q12 [facility] Last Admin: 11/30/17 21:37 Dose: 40 mg Glimepiride (Amaryl) 4 mg PO ACBD [facility] Last Admin: 11/30/17 17:00 Dose: 4 mg Glucagon (Glucagen Diagnostic Kit) 0 mg IM STAT PRN; Protocol PRN Reason: Hypoglycemia Protocol Hydralazine HCl (Apresoline) 75 mg PO TID [facility] Last Admin: 11/30/17 18:00 Dose: 75 mg Dextrose (Dextrose 5% In Water 1000 Ml) 1,000 mls @ 0 mls/hr IV .Q0M PRN; Protocol; Per Protocol PRN Reason: Hypoglycemia Protocol Insulin Glargine (Lantus) 10 unit SC [facility] Last Admin: 11/30/17 22:17 Dose: 10 units Insulin Human Regular (Novolin R) 0 unit SC [facility] PRN Reason: Protocol Last Admin: 11/30/17 22:19 Dose: Not Given Losartan Potassium (Cozaar) 100 mg PO DAILY [facility] Metformin HCl (Glucophage) 850 mg PO BID [facility] Last Admin: 11/30/17 18:00 Dose: 850 mg [place]-0-Acrx Ethyl Esters (Lovaza) 1 gm PO BID [facility] Last Admin: 11/30/17 18:00 Dose: 1 gm Pantoprazole Sodium (Protonix Ec Tab) 40 mg PO DAILY [facility] Last Admin: 11/30/17 10:36 Dose: 40 mg Rosuvastatin Calcium (Crestor) 20 mg PO [facility] Last Admin: 11/30/17 21:37 Dose: 20 mg - Labs Labs: 11/30/17 06:36 11/30/17 06:36 PT 11.2 SECONDS (9.7-12.2) 11/27/17 21:10 INR 1.0 11/27/17 21:10 APTT 29 SECONDS (21-34) 11/27/17 21:10 Assessment and Plan - Assessment and Plan (Free Text) Assessment: Patient seen and evaluated personally by me. Plan of care d/w the medical affairs manager and as documented
[2017-11-30] MEDS: (Lantus) Insulin Glargine, Recombinant SC SCH (22:17)
--- NOTE | 2017-12-01 01:57 | CON ---
DATE: 11/30/2017 ENDOCRINOLOGY CONSULTATION LOCATION: ICU room 9. HISTORY OF PRESENT ILLNESS: This is a 47-year-old male with known history of type 2 diabetes and hypertension, presenting here with progressive shortness of breath and evaluated to be in congestive heart failure, and currently undergoing IV diuretic therapy and is also now being referred for diabetic evaluation and management. PAST MEDICAL HISTORY: History of type 2 diabetes, previously on metformin taken as 1 g b.i.d. and glipizide at 5 mg once daily; however, he has been poorly complaint with medications because of financial constraints and loss of medical insurance. History of super morbid obesity with marked lower extremity lymphedema and also now has scrotal edema, history of hypertension and dyslipedemia, history of previous admissions for congestive heart failure, history of obstructive sleep apnea, and currently, using a CPAP device at home. He has a previous history of pancreatitis, the exact details not known at this time. FAMILY HISTORY: Positive for diabetes, hypertension, and scleroderma. SOCIAL HISTORY: The patient had a significant history of previous nicotine dependence and smokes 3 packs a day for over ten years, but has quit this habit already over 20 years ago, also history of chronic alcoholism, but again quit a few years back as noted. No other illicit drug use. REVIEW OF SYSTEMS: As mentioned above, admits to generalized body weakness with easy fatigability and tiredness and suboptimal energy level. Also admits to bifrontal headaches with episodic visual blurring. Also admits to dizziness and lightheadedness worsened the day of admission. Admits to precordial chest pain with progressive shortness of breath, initially on exertion and then at rest with paroxysmal nocturnal dyspnea. His oral intake has been variable with nausea, dyspepsia, and vague upper abdominal pains. Also admits to habitual constipation, also admits to progressively worsening scrotal edema with also worsening lower extremity bipedal edema. PHYSICAL EXAMINATION: GENERAL: This is a morbidly obese male, in no apparent distress. VITAL SIGNS: Blood pressure of 160/100, pulse of 90 beats per minute and regular, temperature 99, respirations 20, height is 5 feet 7 inches, weight is 326 pounds. HEENT: Head is normocephalic. Eyes anicteric with pink conjunctivae. Funduscopy is not possible at this time. Ears, nose, and throat, otherwise, normal. NECK: Supple. Thyroid gland is normal in size. No carotid bruits or any cervical adenopathy. CARDIOPULMONARY: Some adynamic precordium. S1 and S2 is rapid and regular. LUNGS: Show scattered rhonchi. ABDOMEN: Morbidly obese, firm, and nontender. EXTREMITIES: There is +3 bipedal edema. Pulses are +2 bilaterally. LABORATORY DATA: His chemistries today BUN of 23, sodium 140, potassium 3.9, chloride 105, CO2 of 28, glucose 158, and creatinine 1.1. His hemoglobin A1c is 10%. ASSESSMENT: This is a 47-year-old morbidly obese male with uncontrolled type 2 diabetes, and accelerated hypertension, presenting here with congestive heart failure with marked scrotal edema and also severe lymphedema of both lower extremities. PLAN OF MANAGEMENT: With his underlying super morbid obesity and expected increased insulin resistance thereof, this will actually pose a therapeutic challenge in terms of initiating insulin therapy which would promote further fluid retention and lymphedema at this time. He has been started on Lantus given as basal insulin which we could continue at least for inpatient management. We do not carry in this hospital the GLT1 agonist, which could promote A1c reduction, but also promote weight loss as noted. We would highly recommend initiation of Trulicity given as 1.5 mg once weekly as a subcutaneous injection to be given in the outpatient basis. We would also add SGLT-2 inhibitors which would promote osmotic diuresis and glucosuria and also eventual weight loss. This could also be done on the outpatient since we do not have done in our hospital drug formulary. We will increase his metformin to 850 mg b.i.d. and add Amaryl given as 4 mg b.i.d. before meals as ordered. We will hold off on Januvia or any DPP-4 inhibitors because of the history of pancreatitis. We will obtain serial chemistries and supplement accordingly as needed. We will also obtain a serum cortisol and ACTH level and also a T4 and TSH level to for any other underlying endocrinopathy contributing to the weight gain and morbid obesity. We will reinforce dietary adherence to lower caloric and carbohydrate intake with preferential high protein intake, or the so called low carb mediterranean diet. Because of his super morbid obesity, it would be very difficult to promote increased physical activity at this point in time, but this will also be discussed with the patient at bedside. We will obtain serial chemistries and supplement accordingly as needed. We will follow with you. Nora Funes MD
[2017-12-01 06:31] LABS: BASO # 0.1 K/uL (0.0-0.2); BASO % 0.9 % (0.0-2.0); EOS # 0.3 K/uL (0.0-0.7); EOS % 2.8 % (0.0-4.0); HEMOGLOBIN 13.1 g/dL (12.0-18.0); LYMPH # 3.3 K/uL (1.0-4.3); MEAN CELL VOLUME 85.2 fL (80.0-94.0); MEAN CORPUSCULAR HEMOGLOBIN 29.8 pg (27.0-31.0); MEAN CORPUSCULAR HGB CONC 34.9 g/dL (33.0-37.0); MEAN PLATELET VOLUME 8.1 fL (7.2-11.7); MONO # 0.9 K/uL (0.0-0.8); MONO % 8.8 % (0.0-10.0); NEUT # 6.1 K/uL (1.8-7.0); NEUT % 56.5 % (50.0-75.0); RBC 4.41 Mil/uL (4.40-5.90); RED CELL DISTRIBUTION WIDTH 13.5 % (11.5-14.5); WHITE BLOOD COUNT 10.8 K/uL (4.8-10.8)
[2017-12-01 07:02] LABS: T4 8.71 ug/dL (5.5-11.0)
[2017-12-01 07:28] LABS: ALB/GLOB RATIO 1.2 (1.0-2.1); ALBUMIN 2.8 g/dL (3.5-5.0); ALT/SGPT 46 U/L (21-72); AST/SGOT 32 U/L (17-59); BLOOD UREA NITROGEN 23 mg/dL (9-20); CALCIUM 7.4 mg/dl (8.6-10.4); GFR AFRICAN-AMERICAN > 60; GFR NON-AFRICAN AMERICAN > 60
--- NOTE | 2017-12-01 07:43 | CP.PCM.PN ---
Subjective - Date & Time of Evaluation Date of Evaluation: 12/01/17 Time of Evaluation: 07:37 - Subjective Subjective: PGY-[address] Pate's service Patient seen and examined at bedside. Nursing reports BP remained elevated overnight. Patient found resting comfortably with family at bedside. Patient reports swelling in bilateral legs and scrotum has improved since admission. Had long discussion with family about importance of weight loss, and provided information on bariatric surgery. Patient states he is tolerating PT without difficulty. Denies chest pain, SOB, palpitations, abd pain, N/V/D/C. Objective - Vital Signs/Intake and Output Vital Signs (last 24 hours): Temp Pulse Resp BP Pulse Ox 97.7 F 79 18 179/98 H 98 12/01/17 04:00 12/01/17 04:00 12/01/17 04:00 12/01/17 00:00 12/01/17 04:00 Intake and Output: 12/01/17 12/01/17 06:59 18:59 Intake Total 0 Output Total 1200 1700 Balance -1200 -1700 - Medications Medications: Current Medications Albuterol Sulfate (Albuterol 0.083% Inhal Tamika (2.5 Mg/3 Ml) Ud) 2.5 mg IH RQ6 PRN PRN Reason: Shortness of Breath Aspirin (Ecotrin) 81 mg PO DAILY [facility] Last Admin: 11/30/17 10:34 Dose: 81 mg Dextrose (Dextrose 50% Inj) 0 ml IV STAT PRN; Protocol PRN Reason: Hypoglycemia Protocol Dextrose (Glutose 15) 0 gm PO ONCE PRN; Protocol PRN Reason: Hypoglycemia Protocol Enoxaparin Sodium (Lovenox) 40 mg SC DAILY [facility] Last Admin: 11/30/17 10:35 Dose: 40 mg Furosemide (Lasix) 40 mg IVP Q12 [facility] Last Admin: 11/30/17 21:37 Dose: 40 mg Glimepiride (Amaryl) 4 mg PO ACBD [facility] Last Admin: 11/30/17 17:00 Dose: 4 mg Glucagon (Glucagen Diagnostic Kit) 0 mg IM STAT PRN; Protocol PRN Reason: Hypoglycemia Protocol Hydralazine HCl (Apresoline) 75 mg PO TID [facility] Last Admin: 11/30/17 18:00 Dose: 75 mg Dextrose (Dextrose 5% In Water 1000 Ml) 1,000 mls @ 0 mls/hr IV .Q0M PRN; Protocol; Per Protocol PRN Reason: Hypoglycemia Protocol Insulin Glargine (Lantus) 10 unit SC [facility] Last Admin: 11/30/17 22:17 Dose: 10 units Insulin Human Regular (Novolin R) 0 unit SC ACHS [facility] PRN Reason: Protocol Last Admin: 11/30/17 22:19 Dose: Not Given Losartan Potassium (Cozaar) 100 mg PO DAILY [facility] Metformin HCl (Glucophage) 850 mg PO BID [facility] Last Admin: 11/30/17 18:00 Dose: 850 mg Sauag-7-Wuvu Ethyl Esters (Lovaza) 1 gm PO BID [facility] Last Admin: 11/30/17 18:00 Dose: 1 gm Pantoprazole Sodium (Protonix Ec Tab) 40 mg PO DAILY [facility] Last Admin: 11/30/17 10:36 Dose: 40 mg Rosuvastatin Calcium (Crestor) 20 mg PO HS [facility] Last Admin: 11/30/17 21:37 Dose: 20 mg - Labs Labs: 12/01/17 06:26 12/01/17 06:26 PT 11.2 SECONDS (9.7-12.2) 11/27/17 21:10 INR 1.0 11/27/17 21:10 APTT 29 SECONDS (21-34) 11/27/17 21:10 - Additional Findings Additional findings: - Constitutional Appears: Non-toxic, No Acute Distress, Other (large body habitus noted) - Head Exam Head Exam: ATRAUMATIC, NORMOCEPHALIC - Eye Exam Eye Exam: EOMI, Normal appearance. absent: Scleral icterus - ENT Exam ENT Exam: Mucous Membranes Moist - Neck Exam Neck Exam: absent: Lymphadenopathy - Respiratory Exam Respiratory Exam: Clear to Ausculation Bilateral, NORMAL BREATHING PATTERN. absent: Accessory Muscle Use, Rales, Rhonchi, Wheezes, Respiratory Distress - Cardiovascular Exam Cardiovascular Exam: REGULAR RHYTHM, +S1, +S2 - GI/Abdominal Exam GI & Abdominal Exam: Soft. absent: Distended, Firm, Guarding, Rigid, Tenderness Additional comments: morbidly obese - Exam Exam: Scrotal Swelling (mildly improved). absent: Testicular Tenderness, Uretheral Discharge Additional comments: penile/testicular swelling improving - Extremities Exam Extremities Exam: Pedal Edema (2+ up to mid andres, 1+ above mid-andres to knee). absent: Calf Tenderness, Tenderness Additional comments: excoriations on LE b/l - Neurological Exam Neurological Exam: Alert, Awake, CN II-XII Intact, Oriented x3 - Psychiatric Exam Psychiatric exam: Normal Affect, Normal Mood - Skin Skin Exam: Dry, Warm Assessment and Plan - Assessment and Plan (Free Text) Plan: CHF vs KENYA vs Obesity Hypoventilation Syndrome Cardiology consulted, Dr. Ghosh - help appreciated CXR (11/27): No active pulmonary disease. Severe cardiomegaly and mild pulmonary venous congestion. Chest CTA (11/27): No CT evidence for acute pulmonary embolism. Trace pericardial effusion. Cholelithiasis ECHO (11/29): EF ~ 50-55%, mild LVH, mild MR, normal diastolic function D-Dimer 1007 BNP 282 Trop negative x 1 (0.0290) UA - protein 3+, glucose 3+ UDS negative Lipid Panel (11/29/17): HDL 32, LDL 135, Trigly 165 HCO3 on BMP - 27 * ABG on Room Air (11/28): pCO2 37, pO2 77, HCO3 27.4, pH 7.47 Medications * Albuterol 0.083% 2.5mg IH q6h prn * Lasix 40mg BID, Metolazone 5mg PO Daily * Crestor 20mg PO HS (patient will need to be discharged on high dose statin due to ASCVD risk of 18.3%) * Lenoir-3 (Lovaza) 1gm PO BID * Aspirin 81mg PO daily Hyperlipidemia ASCVD risk - 18.3% risk of cardiovascular event in next 10 years. Crestor 20mg PO HS (patient will need to be discharged on high dose statin due to ASCVD risk of 18.3%) Lenoir-3 (Lovaza) 1gm PO BID Hypertension uncontrolled, continue to monitor Filteration Operator, Dr Canales - f/u US renal to r/o ARASH - fluids limited to 1000 mL/day - low protein diet - planning for kidney biopsy in the future - medication regimen as below Medications * Lasix 40mg IVP BID, add metalozone 5mg PO Daily * Losartan 100mg PO daily * Hydralazine increased to 100mg PO TID Diabetes, uncontrolled Endocrinology consulted, Dr. Nora Funes - help appreciated patient admits diet non-compliance Hgb A1c 10.0 Medications * Amaryl 4mg PO BID * Metformin increased to 850mg PO BID * Lantus 10 units SC HS * ISS - high dose * Hypoglycemic protocol Nephrotic Syndrome/Anasarca likely 2/2 to uncontrolled diabetes UA (11/27/17): Protein 3+, Glucose 3+, otherwise unremarkable BUN 23/Cr 0.9 Total protein 5.1 Albumin 2.6 Discussed with patient that his swelling is likely occurring due loss of protein in his urine 2/2 kidney damage from his uncontrolled diabetes. Morbid Obesity BMI 51.9 Final Inspector [employer] referral * per patient, had a long discussion between proofreader, and himself. He was given a referral for an outpatient proofreader that he plans to follow up with once discharge. Patient understands that he is in poor health and it is largely related to his weight. He needs to take control of his diet and get his health back under control. Patient agrees and verbalizes his understanding stating he will young if he does not get his weight under control. Dr. Pate discussed with patient about gastric bypass/sleeve surgery. Patient is still hesitant but states again that he is willing to look into the surgery upon discharge. Transaminitis, resolved Monitor Prophylactic Care Lovenox 40mg SC daily SCD contraindicated due to lower extremity edema Protonix 40mg PO daily All medical management per Dr. Herlinda Marti PGY-2
[2017-12-01] MEDS: (Novolin R) Insulin Human Regular 100 units/ml vial SC SCH ×4 (07:48→22:00)
[2017-12-01] MEDS: Enoxaparin 40 mg Syringe SC SCH (09:45)
[2017-12-01] MEDS: Omega-3-Acid Ethyl Esters 1 GM Cap PO SCH ×2 (09:46→17:08)
[2017-12-01] MEDS: Pantoprazole 40 mg EC Tab PO SCH (09:46)
--- NOTE | 2017-12-01 10:54 | VASCLAB ---
Date of service: 11/30/2017 PROCEDURE: Lower Extremity Venous Duplex Exam. HISTORY: Elevated D-Dimer, Edema PRIORS: None. TECHNIQUE: Bilateral common femoral, femoral, popliteal and posterior tibial, peroneal and great saphenous veins were evaluated. Flow was assessed with color Doppler, compressibility, assessment of phasic flow and augmentation response. Report prepared by Jerry Hannon, SABRINA, RVT FINDINGS: RIGHT: 1. Common Femoral Vein: 1.1. Compressibility - Fully compressible: Thrombus - None : Flow - Phasic: Augmentation -Normal: Reflux - None. 2. Femoral Vein: 2.1. Compressibility - Fully compressible: Thrombus - None : Flow - Phasic: Augmentation -Normal: Reflux - None. 3. Popliteal Vein: 3.1. Compressibility - Fully compressible: Thrombus - None : Flow - Phasic: Augmentation -Normal: Reflux - None. 4. Posterior Tibial Vein: 4.1. Compressibility - Fully compressible: Thrombus - None: Flow - Phasic: Augmentation -Normal: Reflux - None. 5. Peroneal Vein: 5.1. Compressibility - Fully compressible: Thrombus - None: Flow - Phasic: Augmentation -Normal: Reflux - None. 6. Great Saphenous Vein: 6.1. Compressibility - Fully compressible: Thrombus - None: Flow - Phasic: Augmentation - Normal: Reflux - None. LEFT: 1. Common Femoral Vein: 1.1. Compressibility - Fully compressible: Thrombus - None: Flow - Phasic: Augmentation -Normal: Reflux - None. 2. Femoral Vein: 2.1. Compressibility - Fully compressible: Thrombus - None: Flow - Phasic: Augmentation -Normal: Reflux - None. 3. Popliteal Vein: 3.1. Compressibility - Fully compressible: Thrombus - None : Flow - Phasic: Augmentation -Normal: Reflux - None. 4. Posterior Tibial Vein: 4.1. Compressibility - Fully compressible: Thrombus - None: Flow - Phasic: Augmentation -Normal: Reflux - None. 5. Peroneal Vein: 5.1. Compressibility - Fully compressible: Thrombus - None: Flow - Phasic: Augmentation -Normal: Reflux - None. 6. Great Saphenous Vein: 6.1. Compressibility - Fully compressible: Thrombus - None: Flow - Phasic: Augmentation - Normal: Reflux - None. OTHER FINDINGS: Right: None significant. Left: None significant. IMPRESSION: Right: No evidence of deep or superficial vein thrombosis of the right lower extremity. Normal valve function noted of the right side. Left: No evidence of deep or superficial vein thrombosis of the left lower extremity. Normal valve function noted of the left side.
[2017-12-01 11:55] LABS: SQUAMOUS EPITHIAL < 1 /hpf (0-5); URINE BACTERIA MANY (<OCC); URINE BILIRUBIN NEGATIVE (NEGATIVE); URINE BLOOD NEGATIVE (NEGATIVE); URINE CLARITY Clear (Clear); URINE COLOR Yellow (YELLOW); URINE GLUCOSE (UA) NORMAL (Normal); URINE LEUKOCYTE ESTERASE NEG Leu/uL (Negative); URINE PROTEIN 3+ mg/dL (NEGATIVE); URINE UROBILINOGEN NORMAL mg/dL (0.2-1.0)
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
[2017-12-01] MEDS: Potassium Chloride 20 mEq ER Tab PO SCH ×2 (13:39→17:08)
[2017-12-01] MEDS ORDERED: metOLazone 5 MG TAB PO SCH (18:00)
[2017-12-01] MEDS: (Lantus) Insulin Glargine, Recombinant SC SCH (21:55)
--- NOTE | 2017-12-02 04:40 | PN ---
DATE: 12/01/2017 ENDOCRINOLOGY FOLLOWUP NOTE LOCATION: ICU, room 9. SUBJECTIVE: This is a 47-year-old male with recent uncontrolled type 2 insulin-requiring diabetes, presenting here with congestive heart failure and currently being followed closely in the ICU for hemodynamic monitoring and is also being followed closely for metabolic management. His glycemic levels are fluctuating, but much improved at this time, and the glucose levels have ranged from 137 to 161 and 227 mg/dL. His latest chemistry showed a BUN of 23, sodium 140, potassium 3.7, chloride 106, CO2 of 28, glucose 94, and creatinine 1.1. His calcium level is 7.4. Urine albumin level of 2.8 and a corrected calcium of 8.6 mg/dL, which is normal. His serum cortisol level is low normal with a value of 2.5 expected with underlying hypoalbuminemia. His thyroid studies showed a T4 of 8.71 with a TSH of 3.76. ASSESSMENT: This is a 47-year-old male with uncontrolled type 2 insulin-requiring diabetes with improved metabolic profile given the combination of both oral hypoglycemic therapy and basal insulin therapy as given. He has also underlying super morbid obesity contributing to the increased insulin resistance thereof. PLAN OF MANAGEMENT: I have discussed lengthily with the patient and his at the bedside, imperatively for dramatic weight loss and healthier food choices that must be overemphasized, which will be done on the outpatient, and the is very supportive of his care, especially with his food choices as discussed lengthily at bedside. We will actually be initiating a GLP-1 agonist injection given once a week such as Trulicity, which will promote not only A1c reduction, but also weight loss as noted. We will also be adding an SGLT2 inhibitor on the outpatient which will promote glucosuria and weight loss also with the patient. However, this aforementioned medications are not available in our hospital formulary and will be given in the outpatient and actually will be discontinuing his Amaryl which is given at this time inpatient and also even his metformin as indicated. We will also be starting his Lantus given as basal insulin if fasting glycemic levels improved accordingly. We will obtain serial chemistries and supplement accordingly as needed. In the meantime, we will continue the combination of metformin given as 850 mg b.i.d. and Amaryl given as 4 mg b.i.d. before meals as ordered. We will continue the Lantus given as 10 units subcu at bedtime daily as given. We will obtain serial chemistries and supplement accordingly as needed. We will follow. Nora Funes MD
[2017-12-02 06:28] LABS: BASO # 0.1 K/uL (0.0-0.2); BASO % 0.8 % (0.0-2.0); EOS # 0.4 K/uL (0.0-0.7); EOS % 2.8 % (0.0-4.0); HEMOGLOBIN 14.5 g/dL (12.0-18.0); LYMPH # 4.7 K/uL (1.0-4.3); LYMPH % 37.2 % (20.0-40.0); MEAN CORPUSCULAR HEMOGLOBIN 29.4 pg (27.0-31.0); MEAN CORPUSCULAR HGB CONC 34.6 g/dL (33.0-37.0); MEAN PLATELET VOLUME 8.9 fL (7.2-11.7); MONO # 1.2 K/uL (0.0-0.8); MONO % 9.3 % (0.0-10.0); NEUT # 6.3 K/uL (1.8-7.0); NEUT % 49.9 % (50.0-75.0); NRBC % 0.1 % (0.0-2.0); RBC 4.92 Mil/uL (4.40-5.90); RED CELL DISTRIBUTION WIDTH 13.6 % (11.5-14.5); WHITE BLOOD COUNT 12.7 K/uL (4.8-10.8)
[2017-12-02 06:44] LABS: BLOOD UREA NITROGEN 25 mg/dL (9-20); CALCIUM 8.4 mg/dl (8.6-10.4); GFR AFRICAN-AMERICAN > 60; GFR NON-AFRICAN AMERICAN > 60
[2017-12-02] MEDS: (Novolin R) Insulin Human Regular 100 units/ml vial SC SCH ×3 (08:19→16:27)
[2017-12-02] MEDS ORDERED: Ergocalciferol 50,000 Intl Units Cap PO SCH (09:45)
[2017-12-02] MEDS: Enoxaparin 40 mg Syringe SC SCH (10:15)
[2017-12-02] MEDS: Omega-3-Acid Ethyl Esters 1 GM Cap PO SCH (10:20)
[2017-12-02] MEDS: Potassium Chloride 20 mEq ER Tab PO SCH (10:20)
[2017-12-02] MEDS: Pantoprazole 40 mg EC Tab PO SCH (10:21)
[2017-12-02 12:22] LABS: U CREAT 24HOUR URINE 2198.4 mg/24hr (800-2800); URINE CREATININE 45.8 mg/dL
--- NOTE | 2017-12-02 14:23 | CP.PCM.PN ---
Subjective - Date & Time of Evaluation Date of Evaluation: 12/02/17 Time of Evaluation: 14:22 - Subjective Subjective: PT SEEN BY DR. BALL AND CLEARED TODAY FOR D/C HOME. DR. GRAY AND DR. BURGESS ALSO IN AGREEMENT WITH D/C. PT TO F/U WITH PMD, DR. NEAL IN OFFICE; F/U WITH DR. GRAY IN HER OFFICE AND DR. BURGESS IN HIS OFFICE. CARDIOVASCULAR SONOGRAPHER DISCUSSED AT LENGTH D/C PLAN, NEW MEDICATIONS, AND FOLLOW UP APPTS WITH PT AND SON AT BEDSIDE. PT ADVISED NOT TO WORK FOR 1 WEEK---CLEARED TO RETURN ON 12/11/17. SEE BELOW FOR DETAILED D/C INFORMATION DISCUSSED AND PROVIDED TO PT. NO FURTHER ORDERS. -FOLLOW UP WITH DR. BALL OR YOUR PRIMARY DOCTOR IN THE OFFICE IN 5-7 DAYS--- CALL ON MONDAY FOR AN APPOINTMENT. -FOLLOW UP WITH DR. GRAY (DOCTOR FOR DIABETES) IN THE OFFICE IN 5-7 DAYS---CALL ON MONDAY FOR AN APPOINTMENT. -FOLLOW UP WITH DR. BURGESS (DOCTOR FOR KIDNEYS) IN THE OFFICE IN 5-7 DAYS---CALL ON MONDAY FOR AN APPOINTMENT. HE WILL DISCUSS WITH YOU THE RESULTS OF YOUR KIDNEY SCAN. -CONTINUE ALL NEW MEDICATIONS FOLLOWS: 1) BABY ASPIRIN 81 MG---TAKE 1 TABLET BY MOUTH ONCE A DAY. 2) VITAMIN D---TAKE 1 TABLET BY MOUTH ONCE A WEEK (TAKE EVERY MONDAY) 3) GLIMEPIRIDE 4 MG (FOR YOUR SUGAR)---TAKE 1 TABLET BEFORE BREAKFAST AND BEFORE DINNER. 4) METFORMIN 850 MG (FOR YOUR SUGAR)---TAKE 1 TABLET BEFORE BREAKFAST AND BEFORE DINNER. 5) HYDRALAZINE 100 MG (FOR YOUR BLOOD PRESSURE)---TAKE 1 TABLET BY MOUTH 3 TIMES A DAY (MORNING, AFTERNOON, AND EVENING) 6) LOSARTAN 100 MG (FOR YOUR BLOOD PRESSURE)---TAKE 1 TABLET BY MOUTH ONCE A DAY. 7) FUROSEMIDE 40 MG (WATER PILL)---TAKE 1 TABLET BY MOUTH 2 TIMES A DAY ( MORNING AND EVENING). 8) POTASSIUM SUPPLEMENT 20 MEQ---TAKE 1 TABLET BY MOUTH 2 TIMES A DAY (MORNING AND EVENING). 9) ZAROXOLYN 5 MG (WATER PILL)---TAKE 1 TABLET BY MOUTH ONCE A DAY 10) LOVAZA 1 GM (FOR CHOLESTEROL)---TAKE 1 TABLET BY MOUTH 2 TIMES A DAY ( MORNING AND EVENING). 11) ROSUVASTATIN 20 MG (FOR CHOLESTEROL)---TAKE 1 TABLET BY MOUTH AT BEDTIME. -YOU WILL NO LONGER TAKE THE FOLLOWING MEDICATIONS AT HOME: AMLODIPINE (OR NORVASC) AND GLIPIZIDE (GLUCOTROL)---THESE HAVE BEEN STOPPED BY THE DOCTORS SEEING YOU. -ALSO, YOUR DOSES FOR FUROSEMIDE, LOSARTAN, AND METFORMIN AT HOME HAVE CHANGED-- MAKE SURE YOU TAKE THE NEW PRESCRIPTIONS!!! -FOR A COPY OF YOUR CHART, CALL MEDICAL RECORDS (MONDAY-MONDAY) FROM 8AM-4PM--- [phone]. -FOR FURTHER QUESTIONS OR CONCERNS, CONTACT DR. GRAY, DR. BALL, OR DR. BURGESS. Objective - Vital Signs/Intake and Output Vital Signs (last 24 hours): Temp Pulse Resp BP Pulse Ox 98.1 F 88 18 150/83 96 12/02/17 12:00 12/02/17 12:00 12/02/17 12:00 12/02/17 12:00 12/02/17 12:00 Intake and Output: 12/02/17 12/02/17 06:59 18:59 Intake Total 450 Output Total 1400 Balance -950 - Medications Medications: Current Medications Albuterol Sulfate (Albuterol 0.083% Inhal Tamika (2.5 Mg/3 Ml) Ud) 2.5 mg IH RQ6 PRN PRN Reason: Shortness of Breath Aspirin (Ecotrin) 81 mg PO DAILY [facility] Last Admin: 12/02/17 10:20 Dose: 81 mg Dextrose (Dextrose 50% Inj) 0 ml IV STAT PRN; Protocol PRN Reason: Hypoglycemia Protocol Dextrose (Glutose 15) 0 gm PO ONCE PRN; Protocol PRN Reason: Hypoglycemia Protocol Enoxaparin Sodium (Lovenox) 40 mg SC DAILY [facility] Last Admin: 12/02/17 10:15 Dose: 40 mg Ergocalciferol (Drisdol 50,000 Intl Units Cap) 1 cap PO Q7D [facility] Last Admin: 12/02/17 10:22 Dose: 1 cap Furosemide (Lasix) 40 mg IVP Q12 [facility] Last Admin: 12/02/17 10:17 Dose: 40 mg Glimepiride (Amaryl) 4 mg PO ACBD [facility] Last Admin: 12/02/17 10:21 Dose: 4 mg Glucagon (Glucagen Diagnostic Kit) 0 mg IM STAT PRN; Protocol PRN Reason: Hypoglycemia Protocol Hydralazine HCl (Apresoline) 100 mg PO TID [facility] Last Admin: 12/02/17 14:07 Dose: 100 mg Dextrose (Dextrose 5% In Water 1000 Ml) 1,000 mls @ 0 mls/hr IV .Q0M PRN; Protocol; Per Protocol PRN Reason: Hypoglycemia Protocol Insulin Glargine (Lantus) 10 unit SC HS [facility] Last Admin: 12/01/17 21:55 Dose: 10 units Insulin Human Regular (Novolin R) 0 unit SC [facility] PRN Reason: Protocol Last Admin: 12/02/17 12:10 Dose: Not Given Losartan Potassium (Cozaar) 100 mg PO DAILY [facility] Last Admin: 12/02/17 10:22 Dose: 100 mg Metformin HCl (Glucophage) 850 mg PO BID [facility] Last Admin: 12/02/17 10:22 Dose: 850 mg Metolazone (Zaroxolyn) 5 mg PO Q24H [facility] Last Admin: 12/01/17 17:08 Dose: 5 mg Mxysj-9-Ayil Ethyl Esters (Lovaza) 1 gm PO BID [facility] Last Admin: 12/02/17 10:20 Dose: 1 gm Pantoprazole Sodium (Protonix Ec Tab) 40 mg PO DAILY [facility] Last Admin: 12/02/17 10:21 Dose: 40 mg Potassium Chloride (K-Dur 20 Meq Er Tab) 20 meq PO BID [facility] Last Admin: 12/02/17 10:20 Dose: 20 meq Rosuvastatin Calcium (Crestor) 20 mg PO HS [facility] Last Admin: 12/01/17 21:55 Dose: 20 mg - Labs Labs: 12/02/17 06:14 12/02/17 06:14 PT 11.2 SECONDS (9.7-12.2) 11/27/17 21:10 INR 1.0 11/27/17 21:10 APTT 29 SECONDS (21-34) 11/27/17 21:10
--- NOTE | 2017-12-02 15:18 | PN ---
DATE: 12/02/2017 ENDO FOLLOWUP NOTE LOCATION: In ICU room 9. SUBJECTIVE: This is a 47-year-old male with recent admission for congestive heart failure and worsening scrotal and pedal edema with severe lymphedema and is now being followed closely for metabolic management. His glycemic levels are much improved at this time and the glucose values today showed low normal glucose of 83 mg/dL. The glucose overnight levels ranged from 137 to 161 mg/dL. LABORATORY DATA: His latest chemistry showed a BUN of 25, sodium 139, potassium 3.8, chloride 100, CO2 of 31, glucose 91, and creatinine 1.2. ASSESSMENT AND PLAN: So at this time, we will continue the oral hypoglycemic and insulin therapy as given to compliment the physiological functions and keep him on the metformin at 850 mg b.i.d. and Amaryl at 4 mg b.i.d. before meals as ordered. We will continue the basal insulin given as Lantus at 10 units subcutaneously at bedtime daily as given. However, upon discharge we will switch him over to more physiological GLP-1 agonists, which will be given once a week as a subcutaneous injection such as Trulicity given as 1.5 mg subcutaneously once weekly to enhance not only weight loss, but also to lower A1c levels at the same time. We will also add SGLT2 inhibitors to promote and also weight loss accordingly. We will possibly discontinue his Lantus therapy on the outpatient. We will follow. Nora Funes MD
--- NOTE | 2017-12-02 15:34 | IP.NPCORE ---
Heart Failure Core Measure - Heart Failure Ejection Fraction: 40 % or Greater TI Inhibitor Prescribed: No Contraindication/Reason for not providing: ON ARB Angiotensin II Receptor Lea Prescribed: Yes AnticoagulationTherapy for Atrial Fibrillation/Atrialflutter: No Contraindication/Reason for not providing: NO AFIB Aldosterone Antagonist Prescribed: No Contraindication/Reason for not providing: EF >40 Hydralazine Nitrate Prescribed: Yes Implantable Cardioverter Defibrillator Therapy: No Contraindication/Reason for not providing: EF > 40 Cardiac Resynchronization Therapy Prescribed: No Contraindication/Reason for not providing: EF > 40 - Follow up Will be discharged to: Home Follow Up Date (must be within 7 days from discharge): 12/08/17 Follow Up Time: 09:00
--- NOTE | 2017-12-02 16:07 | CP.PCM.PN ---
Subjective - Date & Time of Evaluation Date of Evaluation: 12/02/17 Time of Evaluation: 16:05 - Subjective Subjective: Nephrology Consultation Note: Assessment: Stable Anasarca with Nephrotic syndrome as evident by proteinuria, edema, hypoalbuminemia, hyperlipidemia (DDx include FSGS, DM, membranous nephropathy) Hypertensive Chronic Kidney Disease (I12.9), diabetic kidney disease (E11.22) Chronic Kidney Disease (N18.1) Stage 1 with 3+ proteinuria (R80.9) hypertension (since 2009), morbid obesity, borderline DM in 2009 (on meds since then), KENYA on CPAP uncontrolled severe HTN with Urgency Plan No acute need for renal replacement therapy at this time Hypertension control with meds as ordered. Patient on RAAS antwan as losartan 100 mg/day, changed hydralazine 100 mg TID continue diuresis with lasix 40 mg bid and metolazone. added KDUR 20 meq bid supplements oral fluid restriction to 1000 mL/day Monitor Input/Output, daily weights and renal function with basic metabolic panel low protein diet continue with statins started weekly Vit D sec HTN work up with renin/jose alejandro, metanephrine and renal artery doppler renal work up with urine pro/cr, 24 hr urine protein/Na/Creat, KENNA/DNA, Vit D Dose meds/antibiotics for GFR>60. Avoid nephrotoxins/NSAIDs Glycemic control. pt advised and counselled to loose weight, diet, exercise and lifestyle modifications Further work up/management as per primary team pt stable for d/c from renal perspective with 1 week renal follow up Thanks for allowing me to participate in care of your patient. Will follow patient with you. Please call if any Qs. had d/w team and with pt permission Dr Nigel Canales Office: [phone] Chief Complaint; leg and scrotal swelling reason for consult: HTN and proteinuria HPI: Pt is a 47 M with hx of hypertension (since 2009) and morbid obesity, diagnosed with borderline DM in 2009 (on meds since then), KENYA on CPAP had insurance issues and could not take meds for few months then back on meds 1 month ago came with worsening leg and scrotal swelling for las 1 week. also some SOB on exertion. reports foamy urine x 1month, intermittently for last 1 year renal consult for HTN and proteinuria management Denies OTC/herbal meds or NSAIDs except occasional motrin pt not aware about kidney problem in past non smoker/no etoh or drugs no known complications of DM such as retinopathy/ED/gastroparesis/neuropathy ROS: Cardiovascular: No chest pain. Pulmonary: improved shortness of breath on exertion Gastrointestinal: denies abdominal pain No nausea. No vomiting. Genitourinary: No pain while urinating. Denies blood in urine. All other negative except as mentioned in HPI. swelling better Physical Examination: General Appearance: Comfortable, in no acute respiratory distress, co-operative . morbidly obese Vitals reviewed and noted as below Head; Atraumatic, normocephalic ENT: no ulcers no thrush. Tongue is midline. Oropharynx: no rash or ulcers. EYES: Pupils are equal, round and reactive to light accommodation. Eye muscles and extraocular movement intact. Sclera is anicteric. Neck; supple no lymphadenopathy, no thyromegaly or bruit Lungs: Normal respiratory rate/effort. Breath sounds bilateral equal and clear Heart: Normal rate. s1s2 normal. No rub or gallop. Extremities: 3+ edema. No varicose veins Neurological: Patient is alert, awake and oriented to person, place and time. No focal deficit. Strength bilateral appropriate and equal Skin: Warm and dry. Normal turgor. No rash. Palpitation: Normal elasticity for age Abdomen: Abdomen is soft. Bowel sounds +. There is no abdominal tenderness, no guarding/rigidity no organomegaly Psych: normal insight and normal affect/mood MSK: no joint tenderness or swelling. Digits and nails normal, no deformity : kidney or bladder not palpable. scrotal/penile edema ++ Labs/imaging reviewed. Past medical history, past surgical history, family history, social history, allergy reviewed and noted as below Family hx: no hx of CKD. Rest non-contributory work up: in 2017: HIV/Hep B and C neg. normal complements and SPEP/WHITNEY/FLC assay WNL UA 3+ protein a1c 10 % CXR cardiomegaly BNP 282 albumin 2.8 echo normal LVEF 24 hr urine 2.9 gram Objective - Vital Signs/Intake and Output Vital Signs (last 24 hours): Temp Pulse Resp BP Pulse Ox 98.1 F 88 18 150/83 96 12/02/17 12:12/02/17 12:12/02/17 12:12/02/17 12:00 12/02/17 12:00 Intake and Output: 12/02/17 12/02/17 06:59 18:59 Intake Total 450 Output Total 1400 Balance -950 - Medications Medications: Current Medications Albuterol Sulfate (Albuterol 0.083% Inhal Tamika (2.5 Mg/3 Ml) Ud) 2.5 mg IH RQ6 PRN PRN Reason: Shortness of Breath Aspirin (Ecotrin) 81 mg PO DAILY [facility] Last Admin: 12/02/17 10:20 Dose: 81 mg Dextrose (Dextrose 50% Inj) 0 ml IV STAT PRN; Protocol PRN Reason: Hypoglycemia Protocol Dextrose (Glutose 15) 0 gm PO ONCE PRN; Protocol PRN Reason: Hypoglycemia Protocol Enoxaparin Sodium (Lovenox) 40 mg SC DAILY [facility] Last Admin: 12/02/17 10:15 Dose: 40 mg Ergocalciferol (Drisdol 50,000 Intl Units Cap) 1 cap PO Q7D [facility] Last Admin: 12/02/17 10:22 Dose: 1 cap Furosemide (Lasix) 40 mg IVP Q12 [facility] Last Admin: 12/02/17 10:17 Dose: 40 mg Glimepiride (Amaryl) 4 mg PO ACBD [facility] Last Admin: 12/02/17 10:21 Dose: 4 mg Glucagon (Glucagen Diagnostic Kit) 0 mg IM STAT PRN; Protocol PRN Reason: Hypoglycemia Protocol Hydralazine HCl (Apresoline) 100 mg PO TID [facility] Last Admin: 12/02/17 14:07 Dose: 100 mg Insulin Glargine (Lantus) 10 unit SC HS [facility] Last Admin: 12/01/17 21:55 Dose: 10 units Insulin Human Regular (Novolin R) 0 unit SC ACHS [facility] PRN Reason: Protocol Last Admin: 12/02/17 12:10 Dose: Not Given Losartan Potassium (Cozaar) 100 mg PO DAILY [facility] Last Admin: 12/02/17 10:22 Dose: 100 mg Metformin HCl (Glucophage) 850 mg PO BID [facility] Last Admin: 12/02/17 10:22 Dose: 850 mg Metolazone (Zaroxolyn) 5 mg PO Q24H [facility] Last Admin: 12/01/17 17:08 Dose: 5 mg Mudao-0-Ugvo Ethyl Esters (Lovaza) 1 gm PO BID [facility] Last Admin: 12/02/17 10:20 Dose: 1 gm Pantoprazole Sodium (Protonix Ec Tab) 40 mg PO DAILY [facility] Last Admin: 12/02/17 10:21 Dose: 40 mg Potassium Chloride (K-Dur 20 Meq Er Tab) 20 meq PO BID [facility] Last Admin: 12/02/17 10:20 Dose: 20 meq Rosuvastatin Calcium (Crestor) 20 mg PO HS [facility] Last Admin: 12/01/17 21:55 Dose: 20 mg - Labs Labs: 12/02/17 06:14 12/02/17 06:14 PT 11.2 SECONDS (9.7-12.2) 11/27/17 21:10 INR 1.0 11/27/17 21:10 APTT 29 SECONDS (21-34) 11/27/17 21:10
[2017-12-02 16:26] VITALS: BP 119/78; PULSE 92; RESP 16; TEMP 98.3; O2SAT 97
--- NOTE | 2017-12-02 18:59 | CP.PCM.PN ---
Subjective - Date & Time of Evaluation Date of Evaluation: 12/01/17 Time of Evaluation: 16:30 - Subjective Subjective: Patient seen and evaluated Edema getting better Denies chest pain and dyspnea Physical Examination - Additional Findings Additional findings: - Constitutional Appears: Non-toxic, No Acute Distress, Other (large body habitus noted) - Head Exam Head Exam: ATRAUMATIC, NORMOCEPHALIC - Eye Exam Eye Exam: EOMI, Normal appearance. absent: Scleral icterus - ENT Exam ENT Exam: Mucous Membranes Moist - Neck Exam Neck Exam: absent: Lymphadenopathy - Respiratory Exam Respiratory Exam: Clear to Ausculation Bilateral, NORMAL BREATHING PATTERN. absent: Accessory Muscle Use, Rales, Rhonchi, Wheezes, Respiratory Distress - Cardiovascular Exam Cardiovascular Exam: REGULAR RHYTHM, +S1, +S2 - GI/Abdominal Exam GI & Abdominal Exam: Soft. absent: Distended, Firm, Guarding, Rigid, Tenderness Additional comments: morbidly obese - Exam Exam: Scrotal Swelling (mildly improved). absent: Testicular Tenderness, Uretheral Discharge Additional comments: penile/testicular swelling improving - Extremities Exam Extremities Exam: Pedal Edema (2+ up to mid andres, 1+ above mid-andres to knee). absent: Calf Tenderness, Tenderness Additional comments: excoriations on LE b/l - Neurological Exam Neurological Exam: Alert, Awake, CN II-XII Intact, Oriented x3 - Psychiatric Exam Psychiatric exam: Normal Affect, Normal Mood - Skin Skin Exam: Dry, Warm Objective - Vital Signs/Intake and Output Vital Signs (last 24 hours): Temp Pulse Resp BP Pulse Ox 98.3 F 92 H 16 119/78 97 12/02/17 16:00 12/02/17 16:00 12/02/17 16:00 12/02/17 16:00 12/02/17 16:00 Intake and Output: 12/02/17 12/02/17 06:59 18:59 Intake Total 450 Output Total 1400 Balance -950 - Labs Labs: 12/02/17 06:14 12/02/17 06:14 PT 11.2 SECONDS (9.7-12.2) 11/27/17 21:10 INR 1.0 11/27/17 21:10 APTT 29 SECONDS (21-34) 11/27/17 21:10 Assessment and Plan - Assessment and Plan (Free Text) Assessment: CHF vs KENYA vs Obesity Hypoventilation Syndrome Cardiology consulted, Dr. Ghosh - help appreciated CXR (11/27): No active pulmonary disease. Severe cardiomegaly and mild pulmonary venous congestion. Chest CTA (11/27): No CT evidence for acute pulmonary embolism. Trace pericardial effusion. Cholelithiasis ECHO (11/29): EF ~ 50-55%, mild LVH, mild MR, normal diastolic function D-Dimer 1007 BNP 282 Trop negative x 1 (0.0290) UA - protein 3+, glucose 3+ UDS negative Lipid Panel (11/29/17): HDL 32, LDL 135, Trigly 165 HCO3 on BMP - 27 * ABG on Room Air (11/28): pCO2 37, pO2 77, HCO3 27.4, pH 7.47 Medications * Albuterol 0.083% 2.5mg IH q6h prn * Lasix 40mg BID, Metolazone 5mg PO Daily * Crestor 20mg PO HS (patient will need to be discharged on high dose statin due to ASCVD risk of 18.3%) * [place]-3 (Lovaza) 1gm PO BID * Aspirin 81mg PO daily Hyperlipidemia ASCVD risk - 18.3% risk of cardiovascular event in next 10 years. 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 Nora Funes - help appreciated patient admits diet non-compliance Hgb A1c 10.0 Medications * Amaryl 4mg PO BID * Metformin increased to 850mg PO BID * Lantus 10 units SC HS * ISS - high dose * Hypoglycemic protocol Nephrotic Syndrome/Anasarca likely 2/2 to uncontrolled diabetes UA (11/27/17): Protein 3+, Glucose 3+, otherwise unremarkable BUN 23/Cr 0.9 Total protein 5.1 Albumin 2.6 Discussed with patient that his swelling is likely occurring due loss of protein in his urine 2/2 kidney damage from his uncontrolled diabetes. Morbid Obesity BMI 51.9 Aging Box [employer] referral * per patient, had a long discussion between fruit picker machine operator, and himself. He was given a referral for an outpatient fruit picker machine operator that he plans to follow up with once discharge. Patient understands that he is in poor health and it is largely related to his weight. He needs to take control of his diet and get his health back under control. Patient agrees and verbalizes his understanding stating he will young if he does not get his weight under control. Dr. Pate discussed with patient about gastric bypass/sleeve surgery. Patient is still hesitant but states again that he is willing to look into the surgery upon discharge. Transaminitis, resolved Monitor Prophylactic Care Lovenox 40mg SC daily SCD contraindicated due to lower extremity edema Protonix 40mg PO daily
--- NOTE | 2017-12-04 08:23 | VASCLAB ---
Date of service: 12/02/2017 PROCEDURE: Ultrasonography renal arterial evaluation HISTORY: uncontrolled HTN r/o ARASH COMPARISON: None available. TECHNIQUE: Real-time ultrasonography evaluation of the renal arteries were performed. Comparison is made to the aorta. Report prepared by Td Contreras RVT FINDINGS: AORTA: Patent. Peak systolic velocity 69.1 centimeters/second RIGHT RENAL ARTERY: Renal artery to aorta ratio: 1.05 * Proximal segment: Patent. Peak systolic velocity 72.7 centimeters/second * Mid segment: Patent. Peak systolic velocity 55.9 centimeters/second * Distal segment: Patent. Peak systolic velocity 39.4 centimeters/second Other findings: Right Kidney measures approximately 11.7x6.0x5.3 centimeters. LEFT RENAL ARTERY: Renal artery to aorta ratio: 0.86 * Proximal segment: Patent. Peak systolic velocity 59.1 centimeters/second * Mid segment: Patent. Peak systolic velocity 53.1 centimeters/second * Distal segment: Patent. Peak systolic velocity 35.0 centimeters/second Other findings: Left Kidney measures approximately 16.3x8.0x8.0 centimeters. IMPRESSION: Limited evaluation. No definite hemodynamically significant stenosis involving the renal arteries as visualized. Normal Arterial Doppler obtained.
--- NOTE | 2017-12-04 16:26 | DS ---
The patient came to the hospital with a chief complaint of weakness, fatigue, and swelling in lower extremity. The patient was found to have nephrotic syndrome and insulin-requiring diabetes. The patient received diuresis, insulin. The patient advised weight reduction, follow up with metal furniture glazier. Keith Pate MD
== END 2017-12-02 17:30 | disposition home or self-care (01) | DRG 127 ==
LOC: C.ER 18:11 → C.9I 11-28 00:25
PROVIDERS: ADMIT Internal Medicine Pulmonary Disease; ATTEND Internal Medicine Pulmonary Disease
DX: I13.0 Hypertensive heart and chronic kidney disease with heart failure and stage 1 through stage 4 chronic kidney disease, or unspecified chronic kidney disease (principal); I50.9 Heart failure, unspecified; N04.9 Nephrotic syndrome with unspecified morphologic changes; I16.0 Hypertensive urgency; N18.1 Chronic kidney disease, stage 1; E11.65 Type 2 diabetes mellitus with hyperglycemia; E11.22 Type 2 diabetes mellitus with diabetic chronic kidney disease; E66.2 Morbid (severe) obesity with alveolar hypoventilation; I89.0 Lymphedema, not elsewhere classified; J45.909 Unspecified asthma, uncomplicated; G47.33 Obstructive sleep apnea (adult) (pediatric); E78.00 Pure hypercholesterolemia, unspecified; K80.20 Calculus of gallbladder without cholecystitis without obstruction; N50.89 Other specified disorders of the male genital organs; R79.1 Abnormal coagulation profile; M34.9 Systemic sclerosis, unspecified; T50.1X5A Adverse effect of loop [high-ceiling] diuretics, initial encounter; E88.09 Other disorders of plasma-protein metabolism, not elsewhere classified; E66.01 Morbid (severe) obesity due to excess calories; E78.5 Hyperlipidemia, unspecified; Z79.82 Long term (current) use of aspirin; Z79.4 Long term (current) use of insulin; Z79.899 Other long term (current) drug therapy; Z82.49 Family history of ischemic heart disease and other diseases of the circulatory system; Z82.5 Family history of asthma and other chronic lower respiratory diseases; Z87.891 Personal history of nicotine dependence; Z68.43 Body mass index [BMI] 50.0-59.9, adult